=== PATIENT | female | born 1980 | race Caucasian/White ===

== ENCOUNTER 2020-11-19 15:18 | Emergency (ER) | payer OTHER, SELFPAY ==
--- NOTE | ~2020-11-19 | XR_ITS ---
EXAMINATION: XR chest 1V portable EXAM DATE: 11/19/2020 16:16 INDICATION: Cough and shortness of breath. TECHNIQUE: Portable AP frontal chest x-ray was obtained. There is no prior study for comparison. FINDINGS: Suspect bilateral ill-defined groundglass airspace disease, could be infection or edema. Th e cardiomediastinal silhouette is prominent but magnified on this AP technique. There is no pneumotho rax suspected. There are no pleural effusions. There are no osseous abnormalities identified. IMPRESSION: Suspect bilateral ill-defined acute airspace disease. Consider possibility of COVID pneum onia. Reviewed, dictated and finalized at location A. ANIZER ZINC IMPRESSION: Suspect bilateral ill-defined acute airspace disease. Consider poss ibility of COVID pneumonia.
[2020-11-19 15:32] VITALS: BP 110/85; PULSE 93; RESP 20; TEMP 36.9; O2SAT 95
[2020-11-19 15:42] VITALS: O2SAT 96
--- NOTE | 2020-11-19 15:43 | ED.SOB ---
HPI - SOB/Dyspnea General Chief Complaint: Shortness of Breath/Dyspnea Stated Complaint: SOB,body aches,congestion,fatigue,+family Time Seen by Provider: 11/19/20 15:43 Source: patient Mode of arrival: ambulatory Limitations: no limitations History of Present Illness HPI Narrative: 40-year-old woman comes in today complaining of cough, fatigue, body aches, headache and nausea and diarrhea that has been present for the last week. She states that many members of her family been positive for COVID. She states for the last 3 days she has been short of breath. She states her cough is nonproductive and she has had no fever, vomiting, chest pain, abdominal pain or ankle swelling. She has a history of cardiac or lung disease. MD elicited complaint: shortness of breath and cough Onset (ago): week(s) (1) Timing: constant and progressively worsening Severity: moderate Exacerbating factors: exertion Relieving factors: nothing Associated symptoms: cough and chest congestion Related Data Home oxygen amount: none Home Medications Medication Instructions Recorded Confirmed clonazepam 0.5 mg tablet 0.5 mg PO BID 08/07/20 11/19/20 escitalopram oxalate 5 mg PO DAILY 11/19/20 11/19/20 lamotrigine 100 mg PO HS 11/19/20 11/19/20 lamotrigine 200 mg PO DAILY 11/19/20 11/19/20 Allergies Allergy/AdvReac Type Severity Reaction Status Date / Time No Known Allergies Allergy Verified 08/07/20 10:35 Review of Systems Constitutional: Constitutional: Denies chills, Reports fatigue, Denies fever(s) and Denies weakness Eyes: Eyes: Denies change in vision and Denies photophobia ENT: Denies dysphagia, Reports nasal congestion and Denies sore throat Cardiovascular: Cardiovascular: Denies chest pain and Denies radiating jaw, neck or arm pain Respiratory: Respiratory: Reports chest congestion, Reports cough, Reports dyspnea and Denies wheezing Gastrointestinal: Gastrointestinal: Reports diarrhea, Reports nausea and Denies vomiting Genitourinary: Genitourinary: Denies nocturia and Denies dysuria Musculoskeletal: Musculoskeletal: Reports myalgias, Denies arthralgias and Denies joint swelling Integumentary/Breasts: Skin/Breast: Denies pruritus, Denies erythema and Denies rash Neurologic: Denies vertigo, Denies dizziness and Denies syncope Hematologic/Lymphatic: Hematologic/Lymphatic: Denies easy bleeding and Denies easy bruising Allergic/Immunologic: Allergic/Immunologic: Denies throat swelling and Denies tongue swelling [facility] Past Medical History Medical History Depression Surgical History Surgical History H/O gastric bypass Hx of cholecystectomy Family History Family History Mother Family history of pancreatic cancer Brother Family history of type 2 diabetes mellitus Brother Family history of type 2 diabetes mellitus Other Acute myocardial infarction Social History Social History Smoking status: Former smoker Second hand tobacco smoke exposure: No Alcohol intake: never Exam Const: General: healthy appearing and alert Nutritional Appearance: obese Orientation/consciousness: patient oriented x3 Limitations: no limitations Other: mild acute distress. HENMT: Head: normal to inspection Ears: external ears normal, TM's normal bilaterally and EAC's normal General nose exam: Normal nares present Face and sinus: normal facial exam Mouth: Yes moist mucous membranes Throat: posterior oropharynx normal Eyes: Conjunctivae: conjunctivae normal Pupils: Equal, round and reactive pupils present EOM: EOMs intact bilaterally Resp: Effort & Inspection: normal respiratory effort and not labored Auscultation: clear to auscultation bilaterally, no rales, no rhonchi and no wheezes Cardio: Rate: regu
[2020-11-19 16:22] LABS: SARS-CoV-2 Ag Positive (Negative)
[2020-11-19 16:23] LABS: Influenza Control Valid (Valid)
[2020-11-19] MEDS: ALBUTEROL SULFATE (*SP) INHALER 4 PUFF INHALATION (16:32)
[2020-11-19 16:33] VITALS: PULSE 87; RESP 20; O2SAT 95
[2020-11-19 16:37] VITALS: PULSE 85; RESP 18; O2SAT 96
[2020-11-19 16:40] VITALS: BP 133/95; PULSE 92; RESP 20; O2SAT 95
== END 2020-11-19 16:52 | disposition home or self-care (01) ==
PROVIDERS: Emergency Provider Emergency Medicine
DX: U07.1 COVID-19 (principal)
CPT/HCPCS: 71045; 87426; 87804; 94640; 99283; A9270; C9803

== ENCOUNTER 2023-02-12 08:15 | Outpatient (CLI) | payer OTHER, SELFPAY ==
[2023-02-12 09:08] LABS: Basophils Absolute Auto 0.01 K/mm3 (0.00-0.10); Basophils Percent Auto 0.2 % (0.0-1.0); Eosinophils Absolute Auto 0.08 K/mm3 (0.02-0.50); Eosinophils Percent Auto 1.3 % (1.0-6.0); Hematocrit 36.7 % (35.0-49.0); Immature Granulocyte Absolute 0.05 K/mm3 (0.00-0.00); Immature Granulocyte Percent A 0.8 % (0.0-0.0); Lymphocytes Absolute Auto 1.83 K/mm3 (1.10-4.50); Lymphocytes Percent Auto 29.4 % (18.0-42.0); Mean Corpuscular Hemoglobin 22.7 pg (27.0-31.0); Mean Corpuscular Volume 75.7 fL (78.0-102.0); Mean Platelet Volume 9.1 fl (9.2-11.8); Monocytes Absolute Auto 0.46 K/mm3 (0.10-0.90); Monocytes Percent Auto 7.4 % (2.0-11.0); Neutrophils Absolute Auto 3.8 K/mm3 (1.7-7.2); Neutrophils Percent Auto 60.9 % (50.0-70.0); Platelet Count Result 246 K/mm3 (150-420); Red Blood Count 4.85 M/mm3 (4.20-5.40); Red Cell Distribution Width 15.6 % (11.6-14.4); White Blood Count 6.2 K/mm3 (4.8-10.8)
[2023-02-12 09:25] LABS: Hemoglobin A1C 5.9 % (<5.7)
[2023-02-12 09:41] LABS: Alanine Aminotransferase 23 U/L (14-59); Albumin Level 3.6 g/dL (3.4-5.0); Alkaline Phosphatase 76 U/L (46-116); Anion Gap 8 mmol/L (8-16); Aspartate Amino Transferase 13 U/L (15-37); Bilirubin,Total 0.3 mg/dL (0.00-1.00); Blood Urea Nitrogen 13 mg/dL (7-18); Calcium 8.5 mg/dL (8.5-10.1); Carbon Dioxide 29 mmol/L (21-32); Chloride 106 mmol/L (98-108); Cholesterol 152 mg/dL (0-200); Estimated Glomerular Filt Rate > 60; Glucose 103 mg/dL (70-99); HDL Direct 46 mg/dL (40-60); Iron 31 ug/dL (50-170); LDL Cholesterol Calculated 73 mg/dL (<130); Osmolality Calculated 296 mOsm/kg (285-295); Percent Iron Saturation 9 % (12-57); Potassium 4.4 mmol/L (3.5-5.1); Sodium 143 mmol/L (136-145); Thyroid Stimulating Hormone 1.88 uIU/mL (0.36-3.74); Triglycerides 164 mg/dL (0-150)
[2023-02-16 12:20] LABS: C-Peptide 4.03 ng/mL (0.80-3.85)
[2023-02-16 12:43] LABS: Insulin Level Total 16.5 uIU/mL (<=19.6)
[2023-02-16 17:50] LABS: Vitamin D 25 Hydroxy 13 ng/mL (30-100)
== END 2023-02-12 08:16 | disposition home or self-care (01) ==
LOC: CHSLAB 08:25
DX: D50.8 Other iron deficiency anemias (principal); E55.9 Vitamin D deficiency, unspecified; Z98.84 Bariatric surgery status; R00.0 Tachycardia, unspecified; Z13.220 Encounter for screening for lipoid disorders; I10 Essential (primary) hypertension
CPT/HCPCS: 36415; 80053; 80061; 82306; 83036; 83525; 83540; 83550; 84443; 84681; 85025

== ENCOUNTER 2023-07-16 19:43 | Emergency (ER) | payer OTHER, SELFPAY ==
--- NOTE | ~2023-07-16 | CT_ITS ---
EXAMINATION: CT facial bones wo con DATE: 07/16/2023 20:05 INDICATION: Right jaw pain. TECHNIQUE: Computed tomography (CT) of the facial bones and maxillofacial region was performed withou t intravenous contrast. Automated exposure control and iterative reconstruction technique were employ ed. The dose-length product was 293.82 mGy-cm. COMPARISON: None. FINDINGS: The paranasal sinuses are clear. Bone alignment is normal. No fracture. There is mild osteo arthritis of the temporomandibular joints. There is mild cervical spondylosis. IMPRESSION: 1. Mild osteoarthritis of the temporomandibular joints. Reviewed, dictated and finalized at location E.
[2023-07-16 19:44] VITALS: BP 167/88; RESP 18; TEMP 37; O2SAT 97
--- NOTE | 2023-07-16 19:56 | ED.HA ---
HPI - Headache General Chief Complaint: Headache Stated Complaint: Jaw Dislocation Time Seen by Provider: 07/16/23 19:48 Source: patient Mode of arrival: ambulatory Limitations: no limitations History of Present Illness HPI Narrative: patient is a 42-year-old female with a jaw click and pop at home this evening. right side of the face has the numbness specifically. No chest pain. No focal neurological deficits. MD elicited complaint: other ( Bilateral jaw pain after eating tonight and a feeling of sensation numbness of the face) Onset description: suddenly Severity: moderate Pain scale (0-10): 5 Quality & Timing: aching, throbbing and sharp Exacerbating factors: movement of head/neck Context: occurred while eating Associated symptoms: none Treatments prior to arrival: none Related Data Home Medications Medication Instructions Recorded Confirmed clonazepam 0.5 mg tablet 0.5 mg PO BID 08/07/20 07/16/23 escitalopram oxalate 5 mg tablet 5 mg PO DAILY 11/19/20 07/16/23 lamotrigine 100 mg tablet 100 mg PO HS 11/19/20 07/16/23 lamotrigine 200 mg tablet 200 mg PO DAILY 11/19/20 07/16/23 Allergies Allergy/AdvReac Type Severity Reaction Status Date / Time No Known Allergies Allergy Verified 08/07/20 10:35 Review of Systems Review of Systems: All systems reviewed & are unremarkable except as noted in HPI and below Constitutional: Constitutional: Reports no additional constitutional complaints Eyes: Eyes: Reports no additional eye complaints ENT: Reports system reviewed and no additional complaints, except as documented Cardiovascular: Cardiovascular: Reports no additional cardiovascular complaints Respiratory: Respiratory: Reports no additional respiratory complaints Gastrointestinal: Gastrointestinal: Reports no additional gastrointestinal complaints Genitourinary: Genitourinary: Reports no additional female genitourinary complaints Musculoskeletal: Musculoskeletal: Reports no additional musculoskeletal complaints Integumentary/Breasts: Skin/Breast: Reports system reviewed and no additional complaints, except as docu Neurologic: Reports system reviewed and no additional complaints, except as documented Psychiatric: Psychiatric: Reports no additional psychiatric complaints Endocrine: Endocrine: Reports no additional endocrine complaints Hematologic/Lymphatic: Hematologic/Lymphatic: Reports no additional hematologic/lymphatic complaints Allergic/Immunologic: Allergic/Immunologic: Reports no additional allergic/immunologic complaints PMFSH Past Medical History Medical History Depression Surgical History Surgical History H/O gastric bypass Hx of cholecystectomy Family History Family History Mother Family history of pancreatic cancer Brother Family history of type 2 diabetes mellitus Brother Family history of type 2 diabetes mellitus Other Acute myocardial infarction Social History Social History Smoking status: Former smoker Second hand tobacco smoke exposure: No Alcohol intake: never Exam Const: General: healthy appearing, no acute distress and alert HENMT: Head: normal to inspection, no contusions and no hematomas Ears: external ears normal Face/Nose/Sinus: Normal external nose present Face and sinus: normal facial exam Other: Tender right greater than left TMJ area Resp: Effort & Inspection: normal respiratory effort Auscultation: clear to auscultation bilaterally Cardio: Rate: regular rate Rhythm: regular rhythm Heart sounds: no murmurs GI: Inspection: non-distended GI Palp: Yes Soft to palpation, No Tenderness to palpation present (GI) and No Guarding due to palpation present (GI) Auscultation: normal bowel sounds Skin: General skin exam:
== END 2023-07-16 20:35 | disposition home or self-care (01) ==
LOC: CHSED 20:31
PROVIDERS: Emergency Provider Emergency Medicine
DX: M26.609 Unspecified temporomandibular joint disorder, unspecified side (principal); Z87.891 Personal history of nicotine dependence
CPT/HCPCS: 70486; 99284

== ENCOUNTER 2024-01-26 12:48 | Outpatient (CLI) | payer OTHER, SELFPAY ==
--- NOTE | ~2024-01-26 | US_ITS ---
EXAMINATION: US pelvic complete w TV DATE: 01/26/2024 13:15 INDICATION: Dysmenorrhea, unspecified. TECHNIQUE: Multiple transabdominal and transvaginal sonographic images of the pelvis were obtained. COMPARISON: Ultrasound 10/12/2018 FINDINGS: TRANSABDOMINAL ULTRASOUND: The uterus measures 7.9 x 5.0 x 4.4 cm. There is no free fluid in the pelvis. TRANSVAGINAL ULTRASOUND: The endometrial complex measures 9 mm in thickness. There is a 3.5 cm intramural fibroid. There is a nabothian cysts in the cervix. The right ovary measures 2.7 x 1.7 x 2.0 cm. The left ovary measures 2 .5 x 1.7 x 2.1 cm. There is normal vascular flow in the ovaries. IMPRESSION: 1. Uterine fibroid. Reviewed, dictated and finalized at location A. IMPRESSION: 1. Uterine fibroid.
== END 2024-01-26 12:49 | disposition home or self-care (01) ==
LOC: CHSIMG 12:49
PROVIDERS: PCP Nurse Practitioner Family; Visit Provider Obstetrics & Gynecology
DX: N92.0 Excessive and frequent menstruation with regular cycle (principal); N94.6 Dysmenorrhea, unspecified; D25.9 Leiomyoma of uterus, unspecified
CPT/HCPCS: 76830; 76856